=== PATIENT | female | born 1950 | race Two or more races ===

== ENCOUNTER → 2017-08-01 | Day surgery (SDC) | payer MEDICARE ==
[~2017-08-01] MED LIST: ASCO10002 PO; ASCO100T4 PO; ASPI-630 PO; IV RINGERS,LACTATED 1000ML 1,000 ML IV SCH; LEVO88TA4 PO; LIDOCAINE 2% PF Vial for OR 5 ML VIAL. ONE; LOVA20TA2 PO; OMEG1CAP28 PO; PROPOFOL 40 ML IV ONE
[2017-08-01 08:50] VITALS: BP 151/77
== END | disposition home or self-care (01) ==
LOC: ENDOS 06:56
PROVIDERS: ATTEND Internal Medicine Gastroenterology
DX: Z12.11 Encounter for screening for malignant neoplasm of colon (principal); K64.0 First degree hemorrhoids; E78.00 Pure hypercholesterolemia, unspecified; E03.9 Hypothyroidism, unspecified; Z86.39 Personal history of other endocrine, nutritional and metabolic disease; Z87.891 Personal history of nicotine dependence
CPT/HCPCS: G0121; J2704; J2001

== ENCOUNTER → 2017-08-20 | Outpatient (CLI) | payer MEDICARE ==
[2017-08-01 08:50] VITALS: BP 151/77
[~2017-08-20] MED LIST changes: +GADOBUTROL 7.5 MMOL/7.5 ML VIAL IV ONE; -IV RINGERS,LACTATED 1000ML 1,000 ML IV SCH; -LIDOCAINE 2% PF Vial for OR 5 ML VIAL. ONE; -PROPOFOL 40 ML IV ONE
--- NOTE | 2017-08-20 14:47 | KCIC ---
MRI Brain with and without contrast History: Headache for 2 weeks, dizziness Technique: Multiplanar, multi sequential pre and postcontrast MR imaging was performed of the brain. Contrast: 5 cc Gadavist Comparison: None Findings: There is no evidence of recent infarct or cytotoxic edema. The ventricles, sulci, and cisterns are within normal limits in size and configuration. There is no significant midline shift, intraaxial mass effect, or focal abnormal extra-axial fluid collection. There are few scattered tiny foci of nonenhancing T2 and FLAIR hyperintense signal of the supratentorial white matter. Small focus of increased FLAIR signal of the right lorena is probably artifactual as not seen on the T2 sequence. There is no nodular parenchymal or leptomeningeal enhancement. There is preservation of the major intracranial flow-voids at the skull base. The cerebellar tonsils are normal in location. There is no significant abnormality of the pineal gland or pituitary gland. There is mild bilateral ethmoid air cell mucosal thickening. The mastoid air cells are aerated. There is preserved marrow signal of the clivus. Impression: 1. A few scattered tiny foci of signal abnormality of the supratentorial white matter are nonspecific. White matter changes can be seen in patients with migraine headaches. Otherwise there is no significant intracranial abnormality. Electronically signed by: Keon Muhammad MD (08/20/2017 2:43 PM) [id number]
== END | disposition home or self-care (01) ==
LOC: KCIC MRI 13:23
PROVIDERS: ATTEND Nurse Practitioner Family
DX: R51 Headache (principal); R42 Dizziness and giddiness; R90.82 White matter disease, unspecified
CPT/HCPCS: 70553; A9585